=== PATIENT | female | born 1990 | race Caucasian/White ===

== ENCOUNTER 2024-02-17 23:52 | Emergency (ER) | payer MEDICAID ==
[~2024-02-17] VITALS: Ht 154.9 cm; Wt 51.5 kg
[~2024-02-17 23:52] MED LIST: PREN-84 PO
[2024-02-17 23:54] VITALS: BP 111/68; PULSE 82; TEMP 97.7; O2SAT 99
[2024-02-18] MEDS: LIDOcaine 1% W/epiNEPHrine 1:100,000 20ml vial SQ ONE (00:31)
[2024-02-18] MEDS ORDERED: SULF1TAB49 PO (01:15)
[2024-02-18] MEDS ORDERED: HYDR-3965 PO (01:15)
[2024-02-18 01:16] VITALS: RESP 18
[2024-02-18] MEDS: sulfamethoxazole/trimethoprim DS (800/160mg) tablet PO ONE (01:16)
[2024-02-18] MEDS: HYDROcodone/acetaminophen 5mg/325mg tablet PO ONE (01:16)
== END 2024-02-18 01:26 | disposition home or self-care (01) ==
LOC: ER 23:52
DX: L02.412 Cutaneous abscess of left axilla (principal)
CPT/HCPCS: 10060; 99283; A6253; A6449

== ENCOUNTER 2024-05-09 09:55 | Emergency (ER) | payer MEDICAID ==
[~2024-05-09] VITALS: Ht 154.9 cm; Wt 52.3 kg
[2024-05-09 09:56] VITALS: BP 116/75; PULSE 82; RESP 16; TEMP 98.9; O2SAT 100
[2024-05-09] MEDS ORDERED: CEPH-585 PO (10:25)
[2024-05-09] MEDS: cephalexin 250mg capsule PO ONE (10:41)
== END 2024-05-09 10:39 | disposition home or self-care (01) ==
LOC: ER 09:56
DX: L03.112 Cellulitis of left axilla (principal); L02.412 Cutaneous abscess of left axilla; Z79.899 Other long term (current) drug therapy
CPT/HCPCS: 99283